=== PATIENT | male | born 1970 | race Caucasian/White ===

== ENCOUNTER 2023-11-06 03:45 | Day surgery (SDC) | payer OTHER ==
[2023-11-02 11:38] VITALS: BMI 29.5
[2023-11-06] MEDS ORDERED: MIDAZOLAM HCL 2 MG/2 ML SINGLE DOSE VIAL ONE (11:30)
[2023-11-06] MEDS: ceFAZolin SODIUM 1 GM VIAL IVPB ONE (11:38)
[2023-11-06] MEDS ORDERED: PROPOFOL 20 ML ONE (11:41)
[2023-11-06] MEDS ORDERED: ELECTROLYTE-148 SOLN 1,000 ML IV SCH (12:15)
[2023-11-06 13:07] VITALS: RESP 18
[2023-11-06 13:43] VITALS: BP 109/74; PULSE 72; TEMP 97.8
== END 2023-11-06 13:14 | disposition home or self-care (01) ==
LOC: JASU-SURG 03:45
PROVIDERS: ATTEND Urology
PROC: 0TF4XZZ Fragmentation in Left Kidney Pelvis, External Approach (ICD-10-PCS; principal; 2023-11-06 11:00)
DX: N20.1 Calculus of ureter (principal)